=== PATIENT | female | born 1965 | race Caucasian/White ===

== ENCOUNTER → 2023-11-11 13:50 | Outpatient (CLI) | payer OTHER, SELFPAY ==
--- NOTE | 2023-11-11 13:51 | DI.MRI.S_ITS ---
PROCEDURE: MR LUMBAR SPINE WO CON INDICATIONS: LUMBAR STENOSIS TECHNIQUE: Noncontrast sagittal T1 spin echo and T2 fast echo, sagittal STIR, and T2 fast spin echo through the lumbar spine. In cases with scoliosis, additional coronal T2 fast spin echo may be performed. COMPARISON: [facility], MR, L-SPINE WITHOUT CONTRAST, 10/22/2010, 11:02. FINDINGS: Image quality: Excellent. Alignment and Curvature: Degenerative grade 1 anterior spondylolisthesis L4-5 Bone Marrow: Marrow is of normal overall signal. No acute vertebral body compression fractures. Spinal Cord: Conus medullaris terminates at the L1 level. Visualized cord demonstrates normal signal and size. Paraspinous Soft Tissues: No paravertebral masses. T12-L1: Normal appearance. L1-L2: Normal appearance. L2-L3: Normal appearance. L3-L4: Normal appearance. L4-L5: Hypertrophic facet joints, ligamentum flavum laxity and broad-based disc bulge results in severe central stenosis. Moderate right mild left foraminal stenosis. L5-S1: Disc space narrowing and degenerative endplate changes. No central or foraminal stenosis. IMPRESSION: Degenerative disc disease, degenerative spondylolisthesis and arthropathy results in severe central stenosis at L4-5 Approved by: Maurice Martin M.D. on 11/11/2023 at 16:05
== END ==
PROVIDERS: Referring Provider Orthopaedic Surgery Orthopaedic Surgery of the Spine; Visit Provider Orthopaedic Surgery Orthopaedic Surgery of the Spine
DX: M48.062 Spinal stenosis, lumbar region with neurogenic claudication (principal); M51.36 Other intervertebral disc degeneration, lumbar region; M43.16 Spondylolisthesis, lumbar region; M47.816 Spondylosis without myelopathy or radiculopathy, lumbar region
CPT/HCPCS: 72148

== ENCOUNTER → 2024-04-07 16:20 | Outpatient (CLI) | payer OTHER, SELFPAY ==
--- NOTE | 2024-04-07 16:21 | DI.MRI.S_ITS ---
PROCEDURE: MR SHOULDER LT WO CON INDICATIONS: PAIN IN LEFT SHOULDER TECHNIQUE: Noncontrast oblique coronal T2 fast spin echo with fat saturation, oblique sagittal T1 spin echo and T2 fast spin echo with fat saturation, axial T1 spin echo and T2 fast spin echo with fat saturation through the shoulder. COMPARISON: [facility], CR, XR SHOULDER 2+ VIEWS LEFT, 04/04/2024, 14:26. FINDINGS: Image quality: Excellent. Rotator cuff: Mild tendinosis of the supraspinatus. Low-grade interstitial tear at the anterior footprint of the supraspinatus and low-grade articular sided tear at the critical zone of the anterior and mid supraspinatus fiber. The infraspinatus is unremarkable. The teres minor is unremarkable. The subscapularis is intact. Small area of mild muscle edema of the teres minor and the subscapularis, nonspecific and may represent mild muscle strain. No fatty atrophy of the rotator cuff musculature. Bones and bursae: Moderate degenerative changes of the acromioclavicular joint. Moderate amount of fluid within the acromioclavicular joint. Type 1 acromion. No os acromiale. Mild subacromial/subdeltoid bursitis. Multi focal mild subchondral cystic changes in the greater tuberosity, reactive. No acute fracture. Capsule and soft tissues: Anterior superior labral tear. The extra-articular biceps tendon is intact. The intra-articular biceps tendon is intact as well. Edema at the rotator cuff interval, with thickening of the inferior glenohumeral ligament, suggestive of adhesive capsulitis. Small glenohumeral effusion. Mild subcoracoid bursitis. IMPRESSION: 1. Multifocal low-grade tear of the supraspinatus. 2. Small area of mild muscle edema of the teres minor and the subscapularis, nonspecific and may represent mild muscle strain. 3. Moderate degenerative changes of the acromioclavicular joint. 4. Findings suggestive of adhesive capsulitis. Dictated by: Brittni Otoole M.D. on 04/08/2024 at 11:54 Approved by: Brittni Otoole M.D. on 04/08/2024 at 12:03
== END ==
PROVIDERS: PCP Internal Medicine; Referring Provider Orthopaedic Surgery; Visit Provider Orthopaedic Surgery
DX: M75.112 Incomplete rotator cuff tear or rupture of left shoulder, not specified as traumatic (principal); M25.512 Pain in left shoulder
CPT/HCPCS: 73221